=== PATIENT | male | born 1945 | race Caucasian/White ===

== ENCOUNTER → 2022-07-14 08:14 | Outpatient (CLI) | payer MEDICARE, OTHER, SELFPAY ==
--- NOTE | ~2022-07-14 | CT_ITS ---
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 TECHNIQUE: Computed tomography (CT) of the chest was performed with 75 cc Omnipaque 350 intravenous c ontrast. The dose-length product was 289.87 mGy-cm. COMPARISON: None FINDINGS: No thoracic lymphadenopathy. Small right pleural effusion. There is focal right pleural henry cification with nodular thickening of the right lower lobe pleura posterior medially. There are right renal cysts. There is elevation of the right diaphragm. There is scarring in the right upper lobe an teriorly. No pulmonary nodules or masses. No pneumothorax. No endobronchial lesions. Mild thoracic sp ondylosis. IMPRESSION: 1. Nodular thickening of the right lower lobe pleural space adjacent to the vertebra. This may repres ent treated malignancy, although recurrent/residual neoplasm not excluded. Consider correlation with pet/CT scan. 2: Small right pleural effusion. 3: Elevated right diaphragm, possibly from phrenic nerve paralysis. Reviewed, dictated and finalized at location A. IMPRESSION: 1. Nodular thickening of the right lower lobe pleural space adjacent to the jhonatan tebra. This may represent treated malignancy, although recurrent/residual neopl asm not excluded. Consider correlation with pet/CT scan. 2: Small right pleural effusion. 3: Elevated right diaphragm, possibly from phrenic nerve paralysis.
[2022-07-14 08:44] LABS: Estimated Glomerular Filt Rate 59
== END ==
PROVIDERS: PCP Emergency Medicine; Visit Provider Emergency Medicine
DX: C45.9 Mesothelioma, unspecified (principal); R91.8 Other nonspecific abnormal finding of lung field; J90 Pleural effusion, not elsewhere classified
CPT/HCPCS: 71260; Q9967

== ENCOUNTER 2022-07-26 08:10 | Outpatient (CLI) | payer MEDICARE, OTHER, SELFPAY ==
--- NOTE | 2022-07-26 | EST_ITS ---
Patient Info Name: Luis Fernando Dozier Age: 77 years : 1945 Gender: Male Ht: 71 in Wt: 187 lbs BSA: 2.07 m2 Exam Date: 07/26/2022 9:40 AM Exam Location: [facility] Stress Patient Status: Outpatient Admit Date: 07/26/2022 Staff Ordering Physician: Jethro Talavera MD Attending Provider: Jethro Talavera MD Exercise Technologist: Janice Rich RDCS Exercise Physician: Derek Deshpande DO Exam Type: CA stress bulmaro w NM Study Info Indications R07.9 - Chest pain, unspecified A regadenoson stress test was performed. Summary 1. 1. Negative lexiscan stress test for ischemic ST changes by ECG criteria. 2. 2. Baseline hypertension. 3. 3. Nuclear scan to follow and will be reported separately. Please correlate with it. 4. 4. Patient informed of the above results. Protocol: Lexiscan Stress ECG Details Stage: REST Duration (min): 1 min : 7 sec HR (bpm): 74 SBP (mmHg): 145 DBP (mmHg): 92 Stage: REST Duration (min): 4 min : 55 sec HR (bpm): 74 SBP (mmHg): 145 DBP (mmHg): 92 Stage: STAGE 1 Duration (min): 0 min : 59 sec HR (bpm): 90 SBP (mmHg): 141 DBP (mmHg): 90 Stage: RECOVERY Duration (min): 1 min : 0 sec HR (bpm): 106 SBP (mmHg): 134 DBP (mmHg): 75 Stage: RECOVERY Duration (min): 2 min : 0 sec HR (bpm): 94 SBP (mmHg): 134 DBP (mmHg): 75 Stage: RECOVERY Duration (min): 3 min : 0 sec HR (bpm): 88 SBP (mmHg): 133 DBP (mmHg): 75 Stage: RECOVERY Duration (min): 3 min : 16 sec HR (bpm): 89 SBP (mmHg): 133 DBP (mmHg): 75 Rest HR: 74 bpm Peak HR: 106 bpm Rest Sys BP: 145 mmHg Peak Sys BP: 141 mmHg Max Pred HR: 144 bpm % Max Pred HR: 74 % Target HR: 122 bpm Max RPP: 14,946 bpm*mmHg Termination Reason: Completed protocol Cardiac Symptoms: Shortness of breath Total Time: 1 min : 0 sec Rest Lozano BP: 92 mmHg Peak Lozano BP: 90 mmHg Total Dose: 0.4 mg Resting ECG Sinus rhythm, cannot r/o septal infarct, age indeterminate. Stress ECG No ST changes. Arrhythmias None. Report Signatures
--- NOTE | ~2022-07-26 | NM_ITS ---
EXAMINATION: NM bulmaro stress w perfusion DATE: 07/26/2022 10:40 INDICATION: Chest pain TECHNIQUE: Rest images were obtained following intravenous administration of 10.5 mCi Tc99m tetrofosm in (Myoview). The patient was infused intravenously with Lexiscan (Regadenoson). Then, 33 mCi Tc99m t etrofosmin (Myoview) was administered intravenously, and stress images were obtained. Data was recons tructed into short axis and horizontal and vertical long axis SPECT images. Gated SPECT images were a lso obtained. COMPARISON: None. FINDINGS: There is no definite reversible or fixed perfusion abnormality to suggest ischemia or infar ction. There is normal left ventricular chamber size, wall motion and ejection fraction. Left ventr icular ejection fraction measures >70%. IMPRESSION: 1. Normal myocardial perfusion at rest and during stress. 2. Left ventricular ejection fraction measuring >70%. Reviewed, dictated and finalized at location A.
== END 2022-07-26 08:11 | disposition home or self-care (01) ==
PROVIDERS: PCP Emergency Medicine; Visit Provider Emergency Medicine
DX: R07.9 Chest pain, unspecified (principal)
CPT/HCPCS: 78452; 93017; A9502; J2785

== ENCOUNTER 2023-12-06 07:30 | Day surgery (SDC) | payer MEDICARE, OTHER, SELFPAY ==
[2023-11-22 10:22] VITALS: BMI 28.7
[2023-12-06 08:40] VITALS: BMI 27.7
[2023-12-06 08:43] VITALS: BP 144/90; PULSE 84; RESP 20; TEMP 36.9; O2SAT 96
--- NOTE | 2023-12-06 08:47 | P.HP_ITS ---
History of Present Illness History of Present Illness Consent: Risks, benefits, and alternatives have been discussed and questions answered. Patient agrees to proceed with procedure. Chief complaint: Neoplasm screening Narrative: Luis Fernando Dozier is a 78 year old male presents for screening colonoscopy. Patient states that his bowel habits are normal. He denies abdominal pain. He has had no bleeding. Does have a history of mesothelioma.. It involved his right lung. He has been treated and is felt to be stable with no evidence of active disease. Currently being monitored. Review of Systems Review of Systems: Review of systems noncontributory. [facility] Social History Social History Smoking status: Never smoker Alcohol intake: current Drinks per week: 7 Substance use type: does not use Living arrangements: with family Meds Home Medications and Allergies Home Medications Medication Instructions Recorded Confirmed Type aspirin 81 mg capsule 81 mg PO DAILY 11/22/23 12/06/23 History losartan 50 mg tablet 50 mg PO DIRECTED 11/22/23 12/06/23 History rosuvastatin 10 mg tablet 10 mg PO DIRECTED 11/22/23 12/06/23 History sildenafil 100 mg tablet 100 mg PO DIRECTED 11/22/23 12/06/23 History Allergies Allergy/AdvReac Type Severity Reaction Status Date / Time No Known Allergies Allergy Verified 12/06/23 08:34 Vital Signs Vital Signs - 24 hr 12/06/23 08:43 Temperature 98.4 F Pulse Rate 84 Respiratory Rate 20 Blood Pressure 144/90 H Pulse Oximetry 96 Oxygen Delivery Room Air Exam Narrative: Physical exam reveals patient to be alert. Vital signs stable. HEENT exam is unremarkable. Patient is anicteric. Lungs are clear to auscultation and to percussion. Heart is without murmur or extra sounds. Abdomen bowel sounds are present soft nontender with no organomegaly. Digital external rectal exam normal. Assessment and Plan Assessment and plan (1) Encounter for screening colonoscopy: Code(s): Z12.11 - Encounter for screening for malignant neoplasm of colon Status: Acute Assessment and Plan: Patient presents today for screening colonoscopy. He appears to be at average risk for colon polyps. Further recommendations may be given after endoscopy.
--- NOTE | 2023-12-06 09:18 | P.PNAN_ITS ---
Anes - Initial Pre Proc Eval Procedure: Operation Date: 12/06/23 10:00 Proposed Procedures p Colonoscopy - Jase Mccabe MD Date/Time: 12/06/23 09:18 Surgeon: Jase Mccabe MD Pre Op Diagnosis: Neoplasm screening Patient Data Age: 78 Gender: M Height: 1.78 m Weight: 87.7 kg Last Vital Signs Temp 36.9 C 12/06/23 08:43 Pulse 84 12/06/23 08:43 Resp 20 12/06/23 08:43 BP 144/90 H 12/06/23 08:43 Pulse Ox 96 12/06/23 08:43 O2 Del Method Room Air 12/06/23 08:43 Allergies Allergy/AdvReac Type Severity Reaction Status Date / Time No Known Allergies Allergy Verified 12/06/23 08:34 Home Medications Medication Instructions Recorded Confirmed Type aspirin 81 mg capsule 81 mg PO DAILY 11/22/23 12/06/23 History losartan 50 mg tablet 50 mg PO DIRECTED 11/22/23 12/06/23 History rosuvastatin 10 mg tablet 10 mg PO DIRECTED 11/22/23 12/06/23 History sildenafil 100 mg tablet 100 mg PO DIRECTED 11/22/23 12/06/23 History Patient hx anesthesia problems: none Family hx anesthesia problems: none Results Review: All pre-operative results and documents have been reviewed as part of the pre-operative evaluation. [facility] Social History Social History Smoking status: Never smoker Alcohol intake: current Drinks per week: 7 Substance use type: does not use Living arrangements: with family Anes - Eval Final PreProcedure Day of Procedure 12/06/23 09:18 Patient weight: overweight Heart: regular rate and rhythm Lungs: clear to auscultation Airway: Mallampati scale class II Neurological: alert and oriented Last oral intake: >/= 8 hours ASA classification: III Emergent: no Anesthetic plan: proceed Anesthesia type and monitoring: general GIVS and standard monitoring Results Review: All pre-operative results and documents have been reviewed as part of the pre- operative evaluation. Informed Consent: The patient's anesthetic plan and its attendant risks and benefits were discussed with the patient/family/POA. Questions were solicited and answers provided to the satisfaction of the patient/family/POA.
[2023-12-06] MEDS: LACTATED RINGERS 1,000 ML 150 ML IV CONT (09:22)
[2023-12-06 09:47] VITALS: BP 82/63; PULSE 80; RESP 16; O2SAT 95
[2023-12-06 09:57] VITALS: BP 103/72; PULSE 77; RESP 18; O2SAT 97
[2023-12-06 10:07] VITALS: BP 100/74; PULSE 70; RESP 20; O2SAT 96
--- NOTE | 2023-12-06 10:54 | WPDANESPN ---
Anes - Prog Note Post-Op Date/Time: 12/06/23 10:54 Cardiovascular status: normal Respiratory status: normal Airway patency: baseline Mental status: baseline Post-Op hydration status: normal Vital Signs: Last Vital Signs Temp 36.9 C 12/06/23 08:43 Pulse 70 12/06/23 10:07 Resp 20 12/06/23 10:07 BP 100/74 12/06/23 10:07 Pulse Ox 96 12/06/23 10:07 O2 Del Method Room Air 12/06/23 10:07 Pain Score (VAS): 0 I/O: Intake & Output 12/05/23 12/06/23 12/06/23 23:59 07:59 15:59 Intake Total 500 Balance 500 Patient Feedback: Patient satisfied with anesthetic care.
== END 2023-12-06 10:20 | disposition home or self-care (01) ==
PROVIDERS: PCP Emergency Medicine; Visit Provider Internal Medicine Gastroenterology
PROC: 0DJD8ZZ Inspection of Lower Intestinal Tract, Via Natural or Artificial Opening Endoscopic (ICD-10-PCS; CPT 45378; principal; 2023-12-06 10:00)
DX: Z12.11 Encounter for screening for malignant neoplasm of colon (principal); K64.8 Other hemorrhoids
CPT/HCPCS: 45378